=== PATIENT | female | born 1975 | race American Indian/Alaskan Native ===

== ENCOUNTER 2016-10-18 23:31 | Day surgery (SDC) | payer MEDICAID ==
[2016-10-18] MEDS ORDERED: Lidocaine 1% with EPINEPHrine 1:100,000 20 ML MDV ONE (23:58)
[2016-10-18] MEDS ORDERED: Bupivacaine 0.5%/EPINEPHrine 1:200,000 50 ML MDV ONE (23:59)
[2016-10-19] MEDS ORDERED: Rocuronium 50 MG/5 ML Vial ONE (00:16)
[2016-10-19] MEDS ORDERED: Propofol 200 MG/20 ML SDV ONE (00:16)
[2016-10-19] MEDS ORDERED: Ondansetron 4 MG/2 ML SDV ONE (00:16)
[2016-10-19] MEDS ORDERED: fentaNYL 250 MCG/5 ML SDV ONE (00:17)
[2016-10-19] MEDS ORDERED: Midazolam 1 MG/ML 2 ML SDV ONE (00:17)
[2016-10-19] MEDS ORDERED: Lidocaine 1% 2 ML SDV ONE (00:17)
--- NOTE | 2016-10-19 00:36 | PCM.CONS ---
H&P History of Present Illness - General Date of Service: 10/19/16 Admit Problem/Dx: Admission Diagnosis/Problem Admission Diagnosis/Problem Acute appendicitis Source of Information: Patient, Old records History Limitations: Reports: No limitations - History of Present Illness Initial Comments - Free Text/Narative: The patient is a 41-year-old woman who presents with complaints of abdominal pain since approximately 6:30 PM yesterday, October 18. The patient was brought from the [place] emergency department [facility] for further care. The pain is primarily located in the right lower quadrant at this time and all over the abdomen. The pain started in the left lower quadrant. In [facility], she was also diagnosed with a UTI. She received one dose of Rocephin en route from [facility] which was prescribed by the ER provider in [facility]. They have never had pain like this before. They deny nausea, vomiting, fever and chills. Denies hematochezia, melena, diarrhea or constipation. They deny any personal or family history of colon cancer or inflammatory bowel disease. White blood cell count was 10.2 with no significant left shift when drawn at 8PM in [facility]. CT scan of the Abdomen and Pelvis was performed demonstrating mild appendicitis with no evidence of perforation or abscess. No prior colonoscopy. She also currently has a cold. Urine culture obtained in [facility]. HCG negative. ROS - Notes hx of easy bruising. No hx of clotting d/o. Denies hx of anethesia related complications. Denies VT/stroke. PMH - Morbid obesity BMI 48, Tobacco use, Hx of methamphetamine use, hypothyroidism, GERD, snoring, costochondritis, dysplipidemia, elevated transaminases, hx of elevated blood glc, hx of kidney stones PSxH - Lap yeny, , lithotripsy, cystoscopy w/ stent placement Meds - Synthroid and Prilosec ALL - PCN - puffy/rash, Latex powdered gloves, but no hx of problems with Latex Salcedo catheters, some adhesives SH - Smokes 1-2 cig/day, Denies EtOH, Hx of meth use about 1-2 years ago, Lives in [place] FH - [place] in 60s due to DM, FA due to cerebral aneurysm Left Lower Abdominal Pain Score (Numeric/FACES): 3 - Related Data Allergies/Adverse Reactions: Allergies Allergy/AdvReac Type Severity Reaction Status Date / Time Penicillins Allergy Hives Verified 10/18/16 23:40 Home Medications: Home Meds Omeprazole [Prilosec] 20 mg PO DAILY 04/22/15 [History] Past Medical History - Past Health History Medical/Surgical History: Denies Medical/Surgical History Gastrointestinal History: Reports: GERD Genitourinary History: Reports: Renal calculus 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 No family hx of bleeding/clotting disorders or problems with anesthesia. - Tobacco Use Smoking Status *Q: Current Every Day Smoker Years of Tobacco use: 15 Packs/Tins Daily: 0.5 Used Tobacco, but Quit: No Second Hand Smoke Exposure: Yes - Caffeine Use Caffeine Use: Reports: None - Alcohol Use Days Per Week of Alcohol Use: 0 Number of Drinks Per Day: 0 Total Drinks Per Week: 0 - Recreational Drug Use Recreational Drug Use: Yes Drug Use in Last 12 Months: No Other Recreational Drug Type: 2 years ago quit-did on own H&P Review of Systems - Review of Systems: Review Of Systems: ROS reveals no pertinent complaints other than HPI. Exam - Exam Exam: See Below - Vital Signs Vital Signs: Last Vital Signs Temp 97.5 F 10/18/16 23:32 Pulse 63 10/18/16 23:32 Resp 16 10/18/16 23:32 BP 112/71 10/18/16 23:32 Pulse Ox 98 10/18/16 23:32 Weight: 290 lb - Exam General: alert, oriented, cooperative, moderate distress HEENT: Conjunctiva clear, Hearing intact, Other (patient with upper airway/ sinus congestion ). No: Scleral icterus Lungs: Clear to auscultation, Normal respiratory effort Cardiovascular: regular rate, regular rhythm Abdomen: other (obese, patient complains of severe pain with light touch, but no significant pain with heel tap. ) Rectal (Female) Exam: Deferred Extremities: No: cyanosis, calf tenderness, edema Skin: warm, dry, intact Neurological: cranial nerves intact, normal speech. No: focal deficit Neuro Extensive - Mental Status: alert, oriented x3 Psychiatric: other (Tearful ) - Patient Data Imaging Impressions last 24 hrs: CT images personally reviewed, please see HPI. Consult PN Assessment/Plan Procedures: Procedures ASSAY OF AMYLASE (04/22/15) ASSAY OF LIPASE (05/21/14) ASSAY THYROID STIM HORMONE (09/30/16) C-REACTIVE PROTEIN (05/21/14) CHEST X-RAY 1 VIEW FRONTAL (09/27/16) CHORIONIC GONADOTROPIN ASSAY (04/22/15) COMPLETE CBC AUTOMATED (09/30/16) COMPLETE CBC W/AUTO DIFF WBC (04/22/15) COMPREHEN METABOLIC PANEL (09/30/16) CT ABD & PELVIS W/O CONTRAST (04/22/15) ELECTROCARDIOGRAM TRACING (09/27/16) EMERGENCY DEPT VISIT (09/27/16) EMERGENCY DEPT VISIT (04/22/15) HYDRATE IV INFUSION ADD-ON (04/22/15) LIPID PANEL (09/30/16) ROUTINE VENIPUNCTURE (09/30/16) STREP B DNA AMP PROBE (09/29/14) THER/PROPH/DIAG INJ IV PUSH (04/22/15) TX/PRO/DX INJ NEW DRUG ADDON (04/22/15) TX/PRO/DX INJ 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 Risks of the procedure were discussed including pain, bleeding, infection, scarring, need for additional procedures, risks of anesthesia. The patient found these risks acceptable and agreed to proceed. Will given Invanz 1 gm as tx abx. Patient will need Rx for UTI, none given by Rae prior to DC. Patient should establish care w/ PCP of her choice.
--- NOTE | 2016-10-19 00:46 | PCM.OPNOTE ---
- General Post-Op/Procedure Note Date of Surgery/Procedure: 10/19/16 Operative Procedure(s): Laparoscopic appendectomy Pre Op Diagnosis: Acute appendicitis Post-Op Diagnosis: Same (non-perforated), intra-abdominal adhesions Anesthesia Technique: General ET tube, Local Primary Surgeon: Radha Ramires Anesthesia Provider: Axel Michaud Pathology: Appendix Fluid Replacement, Intraop: 1,000 (mL crystalloid ) EBL in mLs: 5 Complications: None Condition: Good Free Text/Narrative:: INDICATION FOR PROCEDURE: The patient is a 41-year-old woman who had been referred to me by from the [facility] for evaluation for acute appendicitis. She also had a diagnosis of a urinary tract infection. I discussed with the patient performing a laparoscopic appendectomy and associated risks of the procedure. The patient found these risks acceptable and agreed to proceed. DESCRIPTION OF PROCEDURE: The patient was taken to the operating room and placed in the supine position. Sequential compressive devices were placed on the bilateral lower extremities. After induction of general endotracheal anesthesia, the abdomen was prepped and draped in the usual sterile fashion. The left arm had been tucked at the patient 's side and pressure points adequately padded. Treatment antibiotics in the form of Invanz had been administered as per protocol. A curvilinear supraumbilical incision was made using a scalpel. The abdomen was bluntly entered using a hemostat. An 0 Vicryl stay suture was placed. A Dawkins cannula was introduced into the abdomen and the abdomen was insufflated to 15 mm of mercury. The abdomen was then surveyed. There were lower midline adhesions from her previous . Two additional bariatric 5 mm trocars were then placed under direct visualization after first injecting local anesthetic, one in the suprapubic region and one in the left lower quadrant. The appendix was then dissected at the base of the cecum. A mesenteric window was created using a [place]. The appendiceal base was then taken at the cecum using a white load Endo ABY stapler x 2. The appendiceal mesentery was taken using the Harmonic scalpel. The appendix was placed into a Endo Catch bag. The abdomen was suctioned and irrigated. Hemostasis was confirmed. The 5 mm trocars were removed with no evidence of bleeding. The Dawkins cannula and appendix within the EndoCatch bag were then removed. The patient's fascial incision was closed using an 0 Vicryl [id number] suture. Additional local anesthetic was injected lele-incisionally. The incisions were then closed using subcuticular 4-0 Monocryl suture. Dermabond was placed over the patient's skin incisions. The patient was then awakened from anesthesia, extubated, and transferred to the recovery room in stable condition having tolerated the procedure well. Sponge and instrument counts were reported as correct at the end of the case. POSTOPERATIVE PLAN: I discussed my intraoperative findings and post-operative care instructions with the patient's family. The patient will be discharged home today. Prescriptions for Percocet 5/325mg and Zofran ODT were given in addition to Macrobid 100mg BID x 7 days for her UTI. The patient will follow up with in 2 weeks for a post-operative check. She has been instructed to get a PCP and be seen within the next week for her other medical problems. They are not lift over 20 pounds for the next 4 weeks. They are to call the office with any questions or concerns.
[2016-10-19] MEDS ORDERED: Ertapenem 1 GM AdvVial ONE (00:58)
[2016-10-19] MEDS ORDERED: Sodium Chloride 0.9% 100 ML ONE (00:58)
[2016-10-19] MEDS ORDERED: Neostigmine Methylsulfate 1 MG/ML 5 ML Syringe ONE (01:29)
[2016-10-19] MEDS ORDERED: Lactated Ringers 1,000 ML ONE ×2 (01:40→01:44)
[2016-10-19] MEDS ORDERED: Ketorolac 30 MG/ML SDV ONE (01:41)
[2016-10-19] MEDS ORDERED: HYDROmorphone 0.5 MG/0.5 ML Syringe IVPUSH PRN (01:49)
[2016-10-19] MEDS ORDERED: fentaNYL 100 MCG/2 ML SDV IVPUSH PRN (01:49)
--- NOTE | 2016-10-19 01:50 | PCM.POSTAN ---
POST ANESTHESIA ASSESSMENT - MENTAL STATUS Mental Status: alert, oriented - VITAL SIGNS Pulse Rate: 105 SaO2: 94 Resp Rate: 22 Blood Pressure: 129/64 Temperature: 36.4 C - RESPIRATORY Respiratory Status: respiratory rate WNL, airway patent, O2 saturation stable - CARDIOVASCULAR CV Status: pulse rate WNL, blood pressure stable - GASTROINTESTINAL GI Status: no symptoms - PAIN Pain Score: 0 - POST OP HYDRATION Hydration Status: adequate & stable - OBSERVATIONS Free Text/Narrative:: no anesthesia complications noted
--- NOTE | 2016-10-19 01:52 | PCM.PREANE ---
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 Respiratory: Reports: no symptoms Cardiovascular: Reports: no symptoms GI: Reports: no symptoms Other: Reports: easy bruising - PHYSICAL ASSESSMENT HR: 105 O2 Sat by Pulse Oximetry: 94 RR: 22 BP: 129/64 Temp: 36.4 C Vital Signs: Last Vital Signs Temp 36.4 C 10/19/16 01:50 Pulse 105 H 10/19/16 01:50 Resp 22 H 10/19/16 01:50 BP 129/64 10/19/16 01:50 Pulse Ox 94 L 10/19/16 01:50 Height: 1.65 m Weight: 131.542 kg NPO Status Date: 10/18/16 NPO Status Time: 10:30 ASA Class: 3E Mental Status: alert & oriented x3 Airway Class: Mallampati = 2 Dentition: Reports: normal dentition Thyro-Mental Finger Breadths: 3 Mouth Opening Finger Breadths: 2 ROM/Head Extension: full Respiratory Status: lungs clear to auscultation bilaterally Cardiovascular Status: regular rate & rhythm - ALLERGIES Allergies/Adverse Reactions: Allergies Allergy/AdvReac Type Severity Reaction Status Date / Time Penicillins Allergy Hives Verified 10/18/16 23:40 - BLOOD Blood Available: No Product(s) Available: None - ANESTHESIA PLAN Preop Beta Ricardo: No Anesthesia Type Planned: general anesthesia - ACKNOWLEDGEMENTS Pt an appropriate candidate for the planned anesthesia: Yes Alternatives and risks of anesthesia discussed w pt/guardian: Yes Pt/Guardian understands and agree with anesthesia plan: Yes PreAnesthesia Questionnaire - Past Health History Medical/Surgical History: Denies Medical/Surgical History Gastrointestinal History: Reports: GERD Genitourinary History: Reports: Renal calculus 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: Endocrine/Metabolic History: Reports: Hypothyroidism - Past Surgical History GI Surgical History: Reports: Cholecystectomy Female Surgical History: Reports: section, Lithotripsy/ESWL - SUBSTANCE USE Smoking Status *Q: Current Every Day Smoker Tobacco Use Within Last Twelve Months: Cigarettes Second Hand Smoke Exposure: Yes Days Per Week of Alcohol Use: 0 Number of Drinks Per Day: 0 Total Drinks Per Week: 0 Recreational Drug Use History: Yes - HOME MEDS Home Medications: Home Meds Omeprazole [Prilosec] 20 mg PO DAILY 04/22/15 [History] - CURRENT (IN HOUSE) MEDS Current Meds: Current Medications Fentanyl (Sublimaze) 50 mcg IVPUSH Q5M PRN PRN Reason: PAIN Hydromorphone HCl (Dilaudid) 0.5 mg IVPUSH Q15M PRN PRN Reason: Pain Stop: 10/19/16 02:05 Discontinued Medications Bupivacaine HCl/Epinephrine Bitart (Marcaine 0.5%/Epinephrine 1:200,000) Confirm Administered Dose 50 ml .ROUTE .STK-MED ONE Stop: 10/19/16 00:00 Ertapenem (Invanz) Confirm Administered Dose 1 gm .ROUTE .STK-MED ONE Stop: 10/19/16 00:59 Fentanyl (Sublimaze) Confirm Administered Dose 250 mcg .ROUTE .STK-MED ONE Stop: 10/19/16 00:18 Glycopyrrolate () Confirm Administered Dose 1 mg .ROUTE .STK-MED ONE Stop: 10/19/16 01:30 Sodium Chloride (Normal Saline) Confirm Administered Dose 100 mls @ as directed .ROUTE .STK-MED ONE Stop: 10/19/16 00:59 Lactated Ringer's (Ringers, Lactated) Confirm Administered Dose 1,000 mls @ as directed .ROUTE .STK-MED ONE Stop: 10/19/16 01:41 Lactated Ringer's (Ringers, Lactated) Confirm Administered Dose 1,000 mls @ as directed .ROUTE .STK-MED ONE Stop: 10/19/16 01:45 Ketorolac Tromethamine (Toradol) Confirm Administered Dose 30 mg .ROUTE .STK- MED ONE Stop: 10/19/16 01:42 Lidocaine HCl (Lidocaine 1%) Confirm Administered Dose 4 ml .ROUTE .STK-MED ONE Stop: 10/19/16 00:18 Lidocaine/Epinephrine (Xylocaine 1% With Epinephrine 1:100,000) Confirm Administered Dose 20 ml .ROUTE .STK-MED ONE Stop: 10/18/16 23:59 Midazolam HCl (Versed 1 Mg/Ml) Confirm Administered Dose 2 mg .ROUTE .STK-MED ONE Stop: 10/19/16 00:18 Neostigmine Methylsulfate (Neostigmine) Confirm Administered Dose 5 mg .ROUTE .STK-MED ONE Stop: 10/19/16 01:30 Ondansetron HCl (Zofran) Confirm Administered Dose 4 mg .ROUTE .Netotiate-MED ONE Stop: 10/19/16 00:17 Propofol (Diprivan 20 Ml) Confirm Administered Dose 200 mg .ROUTE .RDA MicroelectronicsMED ONE Stop: 10/19/16 00:17 Rocuronium Basile (Zemuron) Confirm Administered Dose 50 mg .ROUTE .Netotiate-MED ONE Stop: 10/19/16 00:17
[2016-10-19] MEDS ORDERED: Acetaminophen/oxyCODONE 325-5 MG Tab PO ONE (02:26)
[2016-10-19 08:25] VITALS: BP 93/65
== END 2016-10-19 01:46 | disposition home or self-care (01) ==
LOC: JD.ED 23:31 → JD.SDS 10-19 00:27 → JD.ED 10-19 00:27 → JD.SDS 10-19 01:46
PROVIDERS: ATTEND Surgery
DX: K37 Unspecified appendicitis (principal); N39.0 Urinary tract infection, site not specified; F17.210 Nicotine dependence, cigarettes, uncomplicated; E03.9 Hypothyroidism, unspecified
CPT/HCPCS: 44970; 88304; 99285; A9270; J1170; J1335; J1885; J2250; J2405; J2710; J3010; J7030; J7120; 00840; J2704

== ENCOUNTER 2016-11-08 21:19 | Emergency (ER) | payer MEDICAID ==
[2016-11-08 21:32] VITALS: BP 131/80
[2016-11-08] MEDS ORDERED: Acetaminophen/oxyCODONE 325-5 MG Tab PO ONE (23:00)
[2016-11-09] MEDS ORDERED: Doxycycline 100 MG Cap PO ONE (00:12)
--- NOTE | 2016-11-09 00:18 | EDM.PDOC ---
ED HPI Skin/Rash - General Chief Complaint: Abdominal Pain Stated Complaint: AB PAIN Time Seen by Provider: 11/08/16 22:12 Source: Reports: Patient History Limitations: Reports: No limitations - History of Present Illness INITIAL COMMENTS - FREE TEXT/NARRATIVE: Patient presents for evaluation and treatment of erythema, drainage and pain to her umbilicus. She reports her symptoms have been present for the last 2 days. She reports that she has a laproscopic appendectomy on . She was on antibiotics and Percocet for pain after the surgery. She states that she took these as prescribed. She is out of her Percocet. She reports that she has been compliant with the recommendations such as no lifting greater than 20 pounds. She has not followed up with her surgeon for a postop followup as she was unaware of the appointment. She is currently complaining of erythema, pain and pus from the port site from the umbilicus. She reports the drainage is clear. She denies any fevers, chills, nausea or vomiting. 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: Endocrine/Metabolic History: Reports: Hypothyroidism - Past Surgical History GI Surgical History: Reports: Appendectomy, Cholecystectomy Female Surgical History: Reports: section, Lithotripsy/ESWL Social & Family History - Tobacco Use Smoking Status *Q: Current Every Day Smoker Years of Tobacco use: 17 Packs/Tins Daily: 0.5 Used Tobacco, but Quit: No Second Hand Smoke Exposure: Yes - Caffeine Use Caffeine Use: Reports: Coffee, Soda - Alcohol Use Days Per Week of Alcohol Use: 0 Number of Drinks Per Day: 0 Total Drinks Per Week: 0 - Recreational Drug Use Recreational Drug Use: Yes Drug Use in Last 12 Months: No Other Recreational Drug Type: 2 years ago quit-did on own ED ROS GENERAL - Review of Systems Review Of Systems: See Below Constitutional: Denies: fever, chills GI/Abdominal: Reports: Abdominal pain. Denies: Nausea, Vomiting Skin: Reports: erythema (surrounding the port site to the umbilicus), wound ( port site wound) ED EXAM, SKIN/RASH Exam: See Below Exam Limited By: No limitations General Appearance: alert, WD/WN, no apparent distress, obese Respiratory/Chest: no respiratory distress, lungs clear, normal breath sounds Cardiovascular: normal peripheral pulses, regular rate, rhythm, no murmur GI/Abdominal: normal bowel sounds Neurological: alert, oriented, normal cognition Psychiatric: normal affect, normal mood Skin: Erythema (approximately 6cm in diameter area of erythema with warmth and tenderness surrounding the 2cm surgical port site, some drainage from the wound ; remainder of port sites are well healed) Course - Vital Signs Last Recorded V/S: Last Vital Signs Temp 36.4 C 11/08/16 21:29 Pulse 68 11/08/16 21:29 Resp 20 11/08/16 21:29 BP 131/80 11/08/16 21:29 Pulse Ox 97 11/08/16 21:29 - Orders/Labs/Meds Orders: Active Orders 24 hr Category Date Time Status CULTURE ANAEROBIC + SMEAR [RM] Stat Lab 11/08/16 23:40 Received Labs: Laboratory Tests 11/08/16 11/08/16 11/08/16 Range/Units 22:34 22:34 22:55 WBC 7.45 (3.98-10.04) K/mm3 RBC 4.87 (3.98-5.22) M/mm3 Hgb 11.3 (11.2-15.7) gm/L Hct 37.0 (34.1-44.9) % MCV 76.0 L (79.4-94.8) fl MCH 23.2 L (25.6-32.2) pg MCHC 30.5 L (32.2-35.5) g/dl RDW Std Deviation 47.7 H (36.4-46.3) fL Plt Count 314 (182-369) K/mm3 MPV 10.4 (9.4-12.3) fl Neutrophils % (Manual) 50 (40-60) % Band Neutrophils % 0 (0-10) % Lymphocytes % (Manual) 42 H (20-40) % Atypical Lymphs % 0 % Monocytes % (Manual) 4 (2-10) % Eosinophils % (Manual) 3 (0.7-5.8) % Basophils % (Manual) 1 (0.1-1.2) Platelet Estimate Adequate Plt Morphology Comment See note Hypochromasia Few Anisocytosis 1+ slight Microcytosis Moderate Stomatocytes Few RBC Morph Comment Not Reportable Sodium 142 (136-145) mEq/L Potassium 3.7 (3.5-5.1) mEq/L Chloride 107 (98-107) mEq/L Carbon Dioxide 23 (21-32) mEq/L Anion Gap 15.7 H (5-15) BUN 8 (7-18) mg/dL Creatinine 0.9 (0.55-1.02) mg/dL Est Cr Clr Drug Dosing 75.52 mL/min Estimated GFR (MDRD) > 60 (>60) mL/min BUN/Creatinine Ratio 8.9 L (14-18) Glucose 118 H (74-106) mg/dL Calcium 8.0 L (8.5-10.1) mg/dL Total Bilirubin 0.2 (0.2-1.0) mg/dL AST 26 (15-37) U/L ALT 49 (14-59) U/L Alkaline Phosphatase 152 H (46-116) U/L C-Reactive Protein 0.8 (<1.0) mg/dL Total Protein 7.1 (6.4-8.2) g/dl Albumin 3.2 L (3.4-5.0) g/dl Globulin 3.9 gm/dL Albumin/Globulin Ratio 0.8 L (1-2) Urine Color Yellow (Yellow) Urine Appearance Slt cloudy H (Clear) Urine pH 6.5 (5.0-8.0) Ur Specific [place] 1.025 (1.005-1.030) Urine Protein Negative (Negative) Urine Glucose (UA) Negative (Negative) Urine Ketones Trace H (Negative) Urine Occult Blood Negative (Negative) Urine Nitrite Negative (Negative) Urine Bilirubin Negative (Negative) Urine Urobilinogen 0.2 (0.2-1.0) Ur Leukocyte Esterase Negative (Negative) Urine RBC Not seen (0-5) /hpf Urine WBC 0-5 (0-5) /hpf Urine WBC Clumps Not seen (NOT SEEN) /hpf Ur Epithelial Cells 0-5 (0-5) /hpf Urine Bacteria Rare (FEW) /hpf Urine Mucus Not seen (FEW) /hpf Urine Yeast Not seen (NOT SEEN) Meds: Medications Discontinued Medications Generic Name Dose Route Start Last Admin Trade Name Freq PRN Reason Stop Dose Admin Doxycycline Hyclate 200 mg 11/09/16 00:12 11/09/16 00:27 Vibramycin PO 11/09/16 00:13 200 mg ONETIME ONE Administration Oxycodone/Acetaminophen 1 tab 11/08/16 23:00 11/08/16 23:06 Percocet 325-5 Mg PO 11/08/16 23:01 1 tab ONETIME ONE Administration - Re-Assessments/Exams Free Text/Narrative Re-Assessment/Exam: 11/09/16 00:06 Labs have returned. What blood cell count is normal at 7.45, hemoglobin is 11.3 and platelets are 314. Sodium is 142, potassium is 3.7 chloride is 107. Anion gap is 15.7. Glucose is 118. CRP is within normal limits of 0.8. UA shows trace ketones. Negative for nitrates and leukocytes. Reviewed the results the patient. I feel this is likely a superficial cellulitis. I will start her on antibiotics and prescribe medication to help with the pain and discomfort. She is to followup with Dr. Radha Ramires this week. She is to return here should her symptoms change or worsen. Departure - Departure Time of Disposition: 00:12 Disposition: Home, Self-Care 01 Condition: fair Clinical Impression: Cellulitis Prescriptions: Doxycycline [Vibramycin] 100 mg PO Q12HR #20 cap traMADol [Ultram] 50 mg PO Q6H PRN #10 tablet PRN Reason: Pain Instructions: Cellulitis, Adult, [id number] Referrals: Radha Ramires MD [Primary Care Provider] - Forms: ED Department Discharge Additional Instructions: you were given medication in the ER that canaffect your ability to drive and operate machinery. No driving or operating machinery within 12 hours of taking prescription narcotic pain medication. Take the doxycycline as prescribed. One tab twice a day for 10 days. Start this medication tomorrow. may take [id number] Tylenol or Motrin as needed for pain symptom relief. He may take the tramadol one tab every 6 hours as needed for severe pain. No driving operating machinery within 12 hours of taking the tramadol. Tramadol can be habit forming. I recommended you take as few of these as needed to control your pain. Followup with Dr. Ramires this week. Please return to the ER should your symptoms change or worsen. - My Orders Last 24 Hours: My Active Orders 11/08/16 23:40 CULTURE ANAEROBIC + SMEAR [RM] Stat - Assessment/Plan Last 24 Hours: My Active Orders 11/08/16 23:40 CULTURE ANAEROBIC + SMEAR [RM] Stat
== END 2016-11-09 00:20 | disposition home or self-care (01) ==
LOC: JD.ED 21:19 → SUPCPDRO 21:19 → JD.ED 11-09 00:20
DX: T81.4XXA Infection following a procedure, initial encounter (principal); L03.316 Cellulitis of umbilicus; Y83.8 Other surgical procedures as the cause of abnormal reaction of the patient, or of later complication, without mention of misadventure at the time of the procedure; K21.9 Gastro-esophageal reflux disease without esophagitis; E03.9 Hypothyroidism, unspecified; F17.210 Nicotine dependence, cigarettes, uncomplicated; Z88.0 Allergy status to penicillin
CPT/HCPCS: 36415; 80053; 81001; 85025; 86140; 87075; 87205; 99284; A9270; 87077; 87181; 87186; 99283

== ENCOUNTER 2017-03-19 13:29 | Emergency (ER) | payer MEDICAID ==
[2017-03-19 13:41] VITALS: BP 135/82
--- NOTE | 2017-03-19 14:14 | EDM.PDOC ---
ED HPI GENERAL MEDICAL PROBLEM - General Chief Complaint: Chest Pain Stated Complaint: CHEST PAIN Time Seen by Provider: 03/19/17 14:14 - History of Present Illness INITIAL COMMENTS - FREE TEXT/NARRATIVE: 41-year-old female presents emergency room with chest pain. This chest pain started on the right side and moved up and down her right arm with tingling and numbness in her thumb index finger middle finger. This pain started about 45 minutes to an hour prior to arrival the patient was driving during this time. The patient did not have any shortness of breath preceding feeding difficulties cough during this she denies any fevers chills. She does not have any chest pressure diaphoresis or gastrointestinal symptoms including nausea or vomiting. The patient has a significant family history of what sounds like coronary artery disease with congestive heart failure in multiple relatives along with some diabetes hypertension and hyperlipidemia. The patient has tried to lose weight recently but had problems with her leg swelling up with these warmer days. She currently does not have a regular physician. In the past the patient has had a questionable history of thyroid problems. right anterior chest wall Pain Score (Numeric/FACES): 5 - Related Data Allergies Allergy/AdvReac Type Severity Reaction Status Date / Time Penicillins Allergy Hives Verified 03/19/17 13:41 Home Meds: Home Meds Omeprazole [Prilosec] 20 mg PO DAILY 04/22/15 [History] Past Medical History - Past Health History Medical/Surgical History: Denies Medical/Surgical History Cardiovascular History: Reports: High Cholesterol Respiratory History: Reports: Other (See Below) Other Respiratory History: calcification on right side of upper lung Gastrointestinal History: Reports: GERD Genitourinary History: Reports: Renal Calculus 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: Endocrine/Metabolic History: Reports: Hypothyroidism - Past Surgical History GI Surgical History: Reports: Appendectomy, Cholecystectomy Female Surgical History: Reports: Section, Lithotripsy/ESWL Social & Family History - Tobacco Use Smoking Status *Q: Current Every Day Smoker Years of Tobacco use: 17 Packs/Tins Daily: 0.2 Used Tobacco, but Quit: No Second Hand Smoke Exposure: Yes - Caffeine Use Caffeine Use: Reports: Coffee, Energy Drinks, Tea - Alcohol Use Days Per Week of Alcohol Use: 0 Number of Drinks Per Day: 0 Total Drinks Per Week: 0 - Recreational Drug Use Recreational Drug Use: No Drug Use in Last 12 Months: No Other Recreational Drug Type: 2 years ago quit-did on own ED ROS GENERAL - Review of Systems Review Of Systems: See Below Constitutional: Reports: No Symptoms HEENT: Reports: No Symptoms Respiratory: Reports: No Symptoms Cardiovascular: Reports: Chest Pain, Edema (Only with exercise). Denies: Blood Pressure Problem, Claudication, Palpitations, Syncope GI/Abdominal: Reports: No Symptoms. Denies: Abdominal Pain, Anorexia, Constipation, Diarrhea, Nausea, Vomiting Neurological: Reports: No Symptoms ED EXAM, GENERAL - Physical Exam Exam: See Below Exam Limited By: No Limitations General Appearance: Alert, No Apparent Distress Head: Atraumatic, Normocephalic Neck: Normal Inspection, Supple, Non-Tender, Full Range of Motion. No: Lymphadenopathy (L), Lymphadenopathy (R) Respiratory/Chest: No Respiratory Distress, Lungs Clear, Normal Breath Sounds Cardiovascular: Normal Peripheral Pulses, Regular Rate, Rhythm, No Murmur GI/Abdominal: Normal Bowel Sounds, Soft, Non-Tender, Other (Significant obesity noted) Extremities: Normal Inspection, No Pedal Edema, Other (Semination of her right wrist shows a positive Tinel's with distal paresthesias mostly in her thumb index finger middle finger and to a lesser degree the radial aspect of her ring finger. Reversed Phalen's is positive regular Phalen's negative this pain did aggravate her right-sided chest discomfort.) Neurological: Alert, Oriented, Normal Cognition Psychiatric: Normal Affect EKG INTERPRETATION EKG Date: 03/19/17 Rhythm: NSR [place]: Normal P-Wave: Present QRS: Normal ST-T: Normal QT: Normal Comparison: NA - No Prior EKG EKG Interpretation Comments: Normal Course - Vital Signs Last Recorded V/S: Last Vital Signs Temp 36.5 C 03/19/17 13:35 Pulse 73 03/19/17 13:35 Resp 18 03/19/17 13:35 BP 135/82 03/19/17 13:35 Pulse Ox 100 03/19/17 13:35 - Orders/Labs/Meds Orders: Active Orders 24 hr Category Date Time Status EKG 12 Lead [EKG Documentation Completion] [RC] STAT Care 03/19/17 13:50 Active Chest 1V Frontal [CR] Stat Exams 03/19/17 14:24 Taken Durable Medical Equipment for Discharge [DME for Oth 03/19/17 16:35 Ordered Discharge] [COMM] Stat Labs: Laboratory Tests 03/19/17 03/19/17 03/19/17 Range/Units 13:55 13:55 13:55 WBC 9.29 (3.98-10.04) K/mm3 RBC 5.11 (3.98-5.22) M/mm3 Hgb 11.7 (11.2-15.7) gm/L Hct 39.1 (34.1-44.9) % MCV 76.5 L (79.4-94.8) fl MCH 22.9 L (25.6-32.2) pg MCHC 29.9 L (32.2-35.5) g/dl RDW Std Deviation 50.1 H (36.4-46.3) fL Plt Count 337 (182-369) K/mm3 MPV 10.6 (9.4-12.3) fl Neutrophils % (Manual) 65 H (40-60) % Band Neutrophils % 0 (0-10) % Lymphocytes % (Manual) 28 (20-40) % Atypical Lymphs % 0 % Monocytes % (Manual) 2 (2-10) % Eosinophils % (Manual) 4 (0.7-5.8) % Basophils % (Manual) 1 (0.1-1.2) Platelet Estimate Adequate Hypochromasia 2+ moderate Target Cells 1+ slight Tear Drop Cells 1+ slight RBC Morph Comment Not Reportable PT 9.4 (8.0-13.0) SECONDS INR 0.87 APTT 26 (22-36) SECONDS Sodium 139 (136-145) mEq/L Potassium 3.9 (3.5-5.1) mEq/L Chloride 105 (98-107) mEq/L Carbon Dioxide 24 (21-32) mEq/L Anion Gap 13.9 (5-15) BUN 11 (7-18) mg/dL Creatinine 0.8 (0.55-1.02) mg/dL Est Cr Clr Drug Dosing 84.95 mL/min Estimated GFR (MDRD) > 60 (>60) mL/min BUN/Creatinine Ratio 13.8 L (14-18) Glucose 116 H (74-106) mg/dL Calcium 8.8 (8.5-10.1) mg/dL Total Bilirubin 0.2 (0.2-1.0) mg/dL AST 69 H (15-37) U/L ALT 82 H (14-59) U/L Alkaline Phosphatase 155 H (46-116) U/L Troponin I < 0.017 (0.00-0.056) ng/mL Total Protein 7.5 (6.4-8.2) g/dl Albumin 3.3 L (3.4-5.0) g/dl Globulin 4.2 gm/dL Albumin/Globulin Ratio 0.8 L (1-2) TSH 3rd Generation 3.545 (0.358-3.74) uIU/mL 03/19/17 Range/Units 16:55 WBC (3.98-10.04) K/mm3 RBC (3.98-5.22) M/mm3 Hgb (11.2-15.7) gm/L Hct (34.1-44.9) % MCV (79.4-94.8) fl MCH (25.6-32.2) pg MCHC (32.2-35.5) g/dl RDW Std Deviation (36.4-46.3) fL Plt Count (182-369) K/mm3 MPV (9.4-12.3) fl Neutrophils % (Manual) (40-60) % Band Neutrophils % (0-10) % Lymphocytes % (Manual) (20-40) % Atypical Lymphs % % Monocytes % (Manual) (2-10) % Eosinophils % (Manual) (0.7-5.8) % Basophils % (Manual) (0.1-1.2) Platelet Estimate Hypochromasia Target Cells Tear Drop Cells RBC Morph Comment PT (8.0-13.0) SECONDS INR APTT (22-36) SECONDS Sodium (136-145) mEq/L Potassium (3.5-5.1) mEq/L Chloride (98-107) mEq/L Carbon Dioxide (21-32) mEq/L Anion Gap (5-15) BUN (7-18) mg/dL Creatinine (0.55-1.02) mg/dL Est Cr Clr Drug Dosing mL/min Estimated GFR (MDRD) (>60) mL/min BUN/Creatinine Ratio (14-18) Glucose (74-106) mg/dL Calcium (8.5-10.1) mg/dL Total Bilirubin (0.2-1.0) mg/dL AST (15-37) U/L ALT (14-59) U/L Alkaline Phosphatase (46-116) U/L Troponin I < 0.017 (0.00-0.056) ng/mL Total Protein (6.4-8.2) g/dl Albumin (3.4-5.0) g/dl Globulin gm/dL Albumin/Globulin Ratio (1-2) TSH 3rd Generation (0.358-3.74) uIU/mL - Re-Assessments/Exams Free Text/Narrative Re-Assessment/Exam: 03/19/17 18:00 Patient presents emergency room with right-sided chest pain with further questioning exam she has carpal tunnel syndrome on her right side positive Tinel 's that actually aggravated her right-sided chest discomfort as well as a positive reverse Phalen's. Her pain did radiate over to the left briefly and then resolved on its own. Patient is placed in a carpal tunnel splint evaluation is concerning for multiple levels she is a very strong family history of coronary artery disease no history of type 2 diabetes however looking at her labs she has elevated liver enzymes. Cannot exclude steatohepatitis this is getting need follow-up her troponin is negative 2. Nonetheless she should have a stress Cardiolite done. She does not have regular physician here in town I will have her follow-up with the Hospital clinic here after stress test she should also either have a repeat chest x-ray as she had some degree of cardiomegaly could be secondary to her body habitus or a cardiac echo to evaluate the etiology of this. Discussed the findings with the patient she understands. At one point the patient wanted me to discuss the situation with her brother I did declined doing this as the patient is not here and advised the patient that she should explain it to him or have him come to the emergency room and I would be glad to explain it to him then. Departure - Departure Time of Disposition: 18:03 Disposition: Home, Self-Care 01 Clinical Impression: Chest pain, Carpal tunnel syndrome of right wrist Referrals: PCP,None [Primary Care Provider] - Forms: ED Department Discharge Additional Instructions: Return to the emergency room with any questions or problems or worsening symptoms. He will be scheduled for a stress Cardiolite. This is a stress test for your heart. Be sure and get this done as scheduled. You'll need to follow-up in the Hospital clinic, [phone], a couple days after the stress test. Discuss with them your risk factors for diabetes hypertension hyperlipidemia and heart disease. On your chest x-ray today your heart was a little on the big side you should have a follow-up chest x-ray to confirm if it is indeed big or go straight to an echocardiogram which tells us more about the heart function and more accurate determinant of the heart size. - My Orders Last 24 Hours: My Active Orders 03/19/17 13:50 EKG 12 Lead [EKG Documentation Completion] [RC] STAT 03/19/17 14:24 Chest 1V Frontal [CR] Stat 03/19/17 16:35 Durable Medical Equipment for Discharge [DME for Discharge] [COMM] Stat - Assessment/Plan Last 24 Hours: My Active Orders 03/19/17 13:50 EKG 12 Lead [EKG Documentation Completion] [RC] STAT 03/19/17 14:24 Chest 1V Frontal [CR] Stat 03/19/17 16:35 Durable Medical Equipment for Discharge [DME for Discharge] [COMM] Stat
--- NOTE | 2017-03-20 08:04 | CR ---
Chest: Portable view of the chest was obtained. Comparison: Previous chest x-ray of 09/27/16. Heart size and mediastinum are normal. Lungs are clear. Bony structures are grossly intact. Impression: 1. Nothing acute is identified on portable chest x-ray. Diagnostic code #1
== END 2017-03-19 18:17 | disposition home or self-care (01) ==
LOC: JD.ED 13:29
DX: R07.89 Other chest pain (principal); G56.01 Carpal tunnel syndrome, right upper limb; E78.00 Pure hypercholesterolemia, unspecified; K21.9 Gastro-esophageal reflux disease without esophagitis; E03.9 Hypothyroidism, unspecified; F17.210 Nicotine dependence, cigarettes, uncomplicated; Z90.49 Acquired absence of other specified parts of digestive tract; Z98.890 Other specified postprocedural states; Z87.440 Personal history of urinary (tract) infections; Z79.899 Other long term (current) drug therapy; Z88.0 Allergy status to penicillin
CPT/HCPCS: 36415; 71010; 71010-26; 80053; 84443; 84484; 85025; 85610; 85730; 93005; 99284; 99285-25

== ENCOUNTER 2020-01-20 15:37 | Emergency (ER) | payer MEDICAID ==
[2020-01-20 16:01] VITALS: BP 149/80; PULSE 82
--- NOTE | 2020-01-20 16:18 | EDM.PDOC ---
ED HPI GENERAL MEDICAL PROBLEM - General Chief Complaint: Lower Extremity Injury/Pain Stated Complaint: LT KNEE INJURY Time Seen by Provider: 01/20/20 16:18 - History of Present Illness INITIAL COMMENTS - FREE TEXT/NARRATIVE: 44-year-old female presents the emergency room with a painful left knee. About a week and a half ago the patient was running down a hill there was a dip at the bottom that had some mud in it she twisted her knee. The patient is tried ibuprofen thinking it would get better and it just has not. She has discomfort with this but is otherwise ambulating on it it is uncomfortable to walk on. Treatments INTELLIGENCE APPLICATIONS: Reports: Cold Therapy, NSAIDS, Splint(s) Left Knee Pain Score (Numeric/FACES): 0 - Related Data Allergies Allergy/AdvReac Type Severity Reaction Status Date / Time Penicillins Allergy Hives Verified 01/20/20 16:01 Home Meds: Home Meds Omeprazole [Prilosec] 20 mg PO DAILY 04/22/15 [History] Past Medical History - Past Health History Medical/Surgical History: Denies Medical/Surgical History HEENT History: Reports: Impaired Vision Cardiovascular History: Reports: High Cholesterol Respiratory History: Reports: Other (See Below) Other Respiratory History: calcification on right side of upper lung Gastrointestinal History: Reports: GERD Genitourinary History: Reports: Renal Calculus 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: Musculoskeletal History: Reports: Back Pain, Chronic Neurological History: Reports: Migraines Psychiatric History: Reports: Depression Endocrine/Metabolic History: Reports: Hypothyroidism - Past Surgical History HEENT Surgical History: Reports: Oral Surgery GI Surgical History: Reports: Appendectomy, Cholecystectomy Female Surgical History: Reports: Section, Lithotripsy/ESWL Social & Family History - Tobacco Use Smoking Status *Q: Current Every Day Smoker Years of Tobacco use: 17 Packs/Tins Daily: 0 - Caffeine Use Caffeine Use: Reports: Coffee, Tea - Recreational Drug Use Recreational Drug Use: No Review of Systems - Review of Systems Review Of Systems: See Below Constitutional: Reports: No Symptoms Mouth/Throat: Reports: No Symptoms Respiratory: Reports: No Symptoms Cardiovascular: Reports: No Symptoms GI/Abdominal: Reports: No Symptoms ED EXAM, GENERAL - Physical Exam Exam: See Below Exam Limited By: No Limitations General Appearance: Alert, No Apparent Distress Respiratory/Chest: No Respiratory Distress, Lungs Clear, Normal Breath Sounds Cardiovascular: Regular Rate, Rhythm, No Edema, No Murmur Extremities: Other (Emanation of her left knee shows what appears to be a intact ACL and MCL LCL seems to be intact but she has a lot of discomfort with putting a strain on it.) Course - Vital Signs Last Recorded V/S: Last Vital Signs Temp 36.1 C 01/20/20 15:57 Pulse 82 01/20/20 15:57 Resp 20 01/20/20 15:57 BP 149/80 H 01/20/20 15:57 Pulse Ox 98 01/20/20 15:57 - Re-Assessments/Exams Free Text/Narrative Re-Assessment/Exam: 01/20/20 17:37 X-ray of the patient he does not show any acute changes. I discussed crutches and a knee immobilizer. I do not think she is got to do well with the knee immobilizer because of her body habitus. And a week and a half from the initial injury measures can make a big difference. The patient would just assume get around the way she is getting around which seems to be okay. Should continue using ibuprofen. I recommended she follow-up with orthopedics in another week or so. Departure - Departure Time of Disposition: 17:40 Disposition: Home, Self-Care 01 Clinical Impression: Injury of left knee - Discharge Information Referrals: PCP,None [Primary Care Provider] - Darin Mcallister MD [Physician] - Forms: ED Department Discharge Additional Instructions: Return to the emergency room with any questions problems or worsening symptoms. Use the ibuprofen as needed for discomfort. Follow-up with Dr. Mcallister in a week or so. Call his office Thursday to schedule an appointment. Sepsis Event Note - Evaluation Sepsis Screening Result: No Definite Risk - Focused Exam Vital Signs: Vital Signs Temp Pulse Resp BP Pulse Ox 01/20/20 15:57 36.1 C 82 20 149/80 H 98 Date Exam was Performed: 01/20/20 Time Exam was Performed: 17:37
--- NOTE | 2020-01-20 16:56 | CR ---
Left knee: AP, lateral and sunrise patellar views left knee were obtained. Comparison: No previous study. Medial and lateral joint compartments are maintained in height. Patellofemoral joint appears within normal limits. No fracture or other bony abnormality is identified. Impression: 1. No abnormality is appreciated on 3 view left knee exam. Diagnostic code #1 This report was dictated in MDT
== END 2020-01-20 17:50 | disposition home or self-care (01) ==
LOC: JD.ED 15:37
DX: S89.92XA Unspecified injury of left lower leg, initial encounter (principal); K21.9 Gastro-esophageal reflux disease without esophagitis; F17.200 Nicotine dependence, unspecified, uncomplicated; Z88.0 Allergy status to penicillin; Z79.899 Other long term (current) drug therapy; X50.1XXA Overexertion from prolonged static or awkward postures, initial encounter
CPT/HCPCS: 73562-26-LT; 73562-LT; 99283

== ENCOUNTER 2021-01-10 22:51 | Emergency (ER) | payer MEDICAID ==
[2021-01-10] MEDS ORDERED: Sodium Chloride 0.9% 10 ML Syringe FLUSH PRN (23:37)
[2021-01-10] MEDS ORDERED: Dexamethasone 4 MG/ML SDV IVPUSH ONE (23:38)
[2021-01-10] MEDS ORDERED: Sodium Chloride 0.9% 1,000 ML IV SCH (23:45)
--- NOTE | 2021-01-11 02:26 | EDM.PDOC ---
ED HPI GENERAL MEDICAL PROBLEM - General Chief Complaint: Respiratory Problem Stated Complaint: COVID+/SOB/COUGH Time Seen by Provider: 01/10/21 23:21 Source of Information: Reports: Patient History Limitations: Reports: No Limitations - History of Present Illness INITIAL COMMENTS - FREE TEXT/NARRATIVE: The patient presents for cough and shortness of breath. She was diagnosed with COVID 19 yesterday. She quit smoking a couple months ago. She has generalized weakness, fever, chills, body aches. She has no history of lung problems. She has a history of diabetes. She has no chest pain, abdominal pain, nausea or vomiting. Onset: Gradual Duration: Day(s): Severity: Moderate Improves with: Reports: None Worsens with: Reports: None Associated Symptoms: Reports: Cough, Fever/Chills, Shortness of Breath. Denies: Chest Pain, Headaches, Nausea/Vomiting - Related Data Allergies Allergy/AdvReac Type Severity Reaction Status Date / Time Penicillins Allergy Severe Hives Verified 01/10/21 23:22 Home Meds: Home Meds Omeprazole [Prilosec] 20 mg PO DAILY 04/22/15 [History] Insulin Aspart [NovoLOG] 8 unit SUBCUT TID 01/10/21 [History] Insulin Glargine,Hum.Rec.Anlog [Lantus Solostar] 35 unit SUBCUT BEDTIME 01/10/21 [History] dexAMETHasone [Dexamethasone] 6 mg PO DAILY #9 tab 01/11/21 [Rx] Past Medical History - Past Health History Medical/Surgical History: Denies Medical/Surgical History HEENT History: Reports: Impaired Vision Cardiovascular History: Reports: High Cholesterol Respiratory History: Reports: Other (See Below) Other Respiratory History: calcification on right side of upper lung Gastrointestinal History: Reports: GERD Genitourinary History: Reports: Renal Calculus [employer] History: Reports: Musculoskeletal History: Reports: Back Pain, Chronic Neurological History: Reports: Migraines Psychiatric History: Reports: Depression Endocrine/Metabolic History: Reports: Diabetes, Type II, Hypothyroidism - Infectious Disease History Infectious Disease History: Reports: Novel Coronavirus - Past Surgical History HEENT Surgical History: Reports: Oral Surgery GI Surgical History: Reports: Appendectomy, Cholecystectomy Female Surgical History: Reports: Section, Lithotripsy/ESWL Social & Family History - Family History Family Medical History: No Pertinent Family History - Tobacco Use Tobacco Use Status *Q: Current Status Unknown Used Tobacco, but Quit: Yes Month/Year Tobacco Last Used: 09/2020 - Caffeine Use Caffeine Use: Reports: None - Recreational Drug Use Recreational Drug Use: No ED ROS GENERAL - Review of Systems Review Of Systems: See Below Constitutional: Reports: Fever, Chills, Malaise, Weakness HEENT: Reports: No Symptoms Respiratory: Reports: Shortness of Breath, Cough Cardiovascular: Reports: No Symptoms Endocrine: Reports: No Symptoms GI/Abdominal: Reports: No Symptoms : Reports: No Symptoms Musculoskeletal: Reports: Muscle Pain ED EXAM, GENERAL - Physical Exam Exam: See Below Exam Limited By: No Limitations General Appearance: Alert, No Apparent Distress Ears: Normal External Exam Nose: Normal Inspection Head: Atraumatic, Normocephalic Neck: Normal Inspection Respiratory/Chest: No Respiratory Distress, Lungs Clear, Normal Breath Sounds Cardiovascular: Regular Rate, Rhythm, No Edema, No Murmur GI/Abdominal: Soft, Non-Tender, No Organomegaly, No Mass Back Exam: Normal Inspection Extremities: Normal Inspection Neurological: Alert, Oriented, No Motor/Sensory Deficits Course - Vital Signs Last Recorded V/S: Last Vital Signs Temp 100.9 F H 01/10/21 23:17 Pulse 93 01/10/21 23:17 Resp 20 01/10/21 23:17 BP 119/74 01/10/21 23:17 Pulse Ox 96 01/10/21 23:17 - Orders/Labs/Meds Orders: Active Orders 24 hr Category Date Time Status Cardiac Monitoring [RC] . DIRECTED Care 01/10/21 23:37 Active Oxygen Therapy [RC] PRN Care 01/10/21 23:37 Active Peripheral IV Care [RC] . DIRECTED Care 01/10/21 23:37 Active Vital Signs [RC] Q15M Care 01/11/21 06:43 Active Chest 1V Frontal [CR] Stat Exams 01/10/21 23:38 Taken Bamlanivimab 700 mg Med 01/11/21 06:43 Active Etesevimab [Etesevimab (EUA)] 1,400 mg Sodium Chloride 0.9% [Normal Saline] 250 ml IV ONETIME EPINEPHrine [Adrenalin] Med 01/11/21 06:43 Active 0.3 mg IM ONETIME PRN Famotidine [Pepcid] Med 01/11/21 06:43 Active 20 mg IVPUSH ONETIME PRN Sodium Chloride 0.9% [Normal Saline] 1,000 ml Med 01/10/21 23:45 Active IV .BOLUS Sodium Chloride 0.9% [Saline Flush] Med 01/10/21 23:37 Active 10 ml FLUSH ASDIRECTED PRN Sodium Chloride 0.9% [Saline Flush] Med 01/11/21 06:45 Active 30 ml FLUSH ASDIRECTED diphenhydrAMINE [Benadryl] Med 01/11/21 06:43 Active 50 mg IVPUSH ONETIME PRN methylPREDNISolone Sod Succ [Solu-MEDROL] Med 01/11/21 06:43 Active 125 mg IVPUSH ONETIME PRN Peripheral IV Insertion Adult [OM.PC] Stat Ot 01/10/21 23:37 Ordered Medication Orders Diphenhydramine HCl (Diphenhydramine 50 Mg/Ml Sdv) 50 mg IVPUSH ONETIME PRN PRN Reason: hypersensitivity reaction Epinephrine HCl (Epinephrine 1 Mg/Ml Sdv) 0.3 mg IM ONETIME PRN PRN Reason: hypersensitivity reaction Famotidine (Famotidine 20 Mg/2 Ml Sdv) 20 mg IVPUSH ONETIME PRN PRN Reason: hypersensitivity reaction Sodium Chloride (Normal Saline) 1,000 mls @ 1,000 mls/hr IV [facility] Last Admin: 01/11/21 00:00 Dose: 1,000 mls/hr Documented by: GRACE Bamlanivimab 700 mg/Etesevimab 1,400 mg/ Sodium Chloride 310 mls @ 310 mls/hr IV ONETIME ONE Stop: 01/11/21 07:42 Methylprednisolone Sodium Succinate (Methylprednisolone Sodium Succinate 125 Mg/2 Ml Sdv) 125 mg IVPUSH ONETIME PRN PRN Reason: hypersensitivity reaction Sodium Chloride (Sodium Chloride 0.9% 10 Ml Syringe) 10 ml FLUSH ASDIRECTED PRN PRN Reason: Keep Vein Open Last Admin: 01/11/21 00:01 Dose: 10 ml Documented by: GRACE Sodium Chloride (Sodium Chloride 0.9% 10 Ml Syringe) 30 ml FLUSH ASDIRECTED [facility] Labs: Laboratory Tests 01/11/21 01/11/21 01/11/21 Range/Units 00:13 00:13 00:13 WBC 4.47 (3.98-10.04) K/mm3 RBC 5.33 H (3.98-5.22) M/mm3 Hgb 13.7 (11.2-15.7) gm/dl Hct 44.0 (34.1-44.9) % MCV 82.6 D (79.4-94.8) fl MCH 25.7 (25.6-32.2) pg MCHC 31.1 L (32.2-35.5) g/dl RDW Std Deviation 61.7 H (36.4-46.3) fL Plt Count 125 L D (182-369) K/mm3 MPV 10.1 (9.4-12.3) fl Neut % (Auto) 58.6 (34.0-71.1) % Lymph % (Auto) 32.7 (19.3-51.7) % [place] % (Auto) 8.3 (4.7-12.5) % Eos % (Auto) 0.2 L (0.7-5.8) Baso % (Auto) 0.2 (0.1-1.2) % Neut # (Auto) 2.62 (1.56-6.13) K/mm3 Lymph # (Auto) 1.46 (1.18-3.74) K/mm3 [place] # (Auto) 0.37 H (0.24-0.36) K/mm3 Eos # (Auto) 0.01 L (0.04-0.36) K/mm3 Baso # (Auto) 0.01 (0.01-0.08) K/mm3 D-Dimer, Quantitative 1.22 H (0.19-0.50) mg/L Sodium 135 L (136-145) mEq/L Potassium 3.5 (3.5-5.1) mEq/L Chloride 102 (98-107) mEq/L Carbon Dioxide 24 (21-32) mEq/L Anion Gap 12.5 (5-15) BUN 7 (7-18) mg/dL Creatinine 0.8 (0.55-1.02) mg/dL Est Cr Clr Drug Dosing 81.59 mL/min Estimated GFR (MDRD) > 60 (>60) mL/min BUN/Creatinine Ratio 8.8 L (14-18) Glucose 101 H (70-99) mg/dL Lactic Acid (0.4-2.0) mmol/L Calcium 7.9 L (8.5-10.1) mg/dL Total Bilirubin 0.5 (0.2-1.0) mg/dL AST 116 H (15-37) U/L ALT 69 H (14-59) U/L Alkaline Phosphatase 251 H (46-116) U/L C-Reactive Protein 1.5 H* (<1.0) mg/dL Total Protein 8.0 (6.4-8.2) g/dl Albumin 2.8 L (3.4-5.0) g/dl Globulin 5.2 gm/dL Albumin/Globulin Ratio 0.5 L (1-2) 01/11/21 Range/Units 00:13 WBC (3.98-10.04) K/mm3 RBC (3.98-5.22) M/mm3 Hgb (11.2-15.7) gm/dl Hct (34.1-44.9) % MCV (79.4-94.8) fl MCH (25.6-32.2) pg MCHC (32.2-35.5) g/dl RDW Std Deviation (36.4-46.3) fL Plt Count (182-369) K/mm3 MPV (9.4-12.3) fl Neut % (Auto) (34.0-71.1) % Lymph % (Auto) (19.3-51.7) % [place] % (Auto) (4.7-12.5) % Eos % (Auto) (0.7-5.8) Baso % (Auto) (0.1-1.2) % Neut # (Auto) (1.56-6.13) K/mm3 Lymph # (Auto) (1.18-3.74) K/mm3 [place] # (Auto) (0.24-0.36) K/mm3 Eos # (Auto) (0.04-0.36) K/mm3 Baso # (Auto) (0.01-0.08) K/mm3 D-Dimer, Quantitative (0.19-0.50) mg/L Sodium (136-145) mEq/L Potassium (3.5-5.1) mEq/L Chloride (98-107) mEq/L Carbon Dioxide (21-32) mEq/L Anion Gap (5-15) BUN (7-18) mg/dL Creatinine (0.55-1.02) mg/dL Est Cr Clr Drug Dosing mL/min Estimated GFR (MDRD) (>60) mL/min BUN/Creatinine Ratio (14-18) Glucose (70-99) mg/dL Lactic Acid 1.0 (0.4-2.0) mmol/L Calcium (8.5-10.1) mg/dL Total Bilirubin (0.2-1.0) mg/dL AST (15-37) U/L ALT (14-59) U/L Alkaline Phosphatase (46-116) U/L C-Reactive Protein (<1.0) mg/dL Total Protein (6.4-8.2) g/dl Albumin (3.4-5.0) g/dl Globulin gm/dL Albumin/Globulin Ratio (1-2) Meds: Medications Generic Name Dose Route Start Last Admin Trade Name Freq PRN Reason Stop Dose Admin Diphenhydramine HCl 50 mg 01/11/21 06:43 Diphenhydramine 50 Mg/Ml Sdv IVPUSH ONETIME PRN hypersensitivity reaction Epinephrine HCl 0.3 mg 01/11/21 06:43 Epinephrine 1 Mg/Ml Sdv IM ONETIME PRN hypersensitivity reaction Famotidine 20 mg 01/11/21 06:43 Famotidine 20 Mg/2 Ml Sdv IVPUSH ONETIME PRN hypersensitivity reaction Sodium Chloride 1,000 mls @ 1,000 mls/hr 01/10/21 23:45 01/11/21 00:00 Normal Saline IV 1,000 mls/hr .BOLUS [facility] Administration Bamlanivimab 700 mg/ 310 mls @ 310 mls/hr 01/11/21 06:43 Etesevimab 1,400 mg/ Sodium IV 01/11/21 07:42 Chloride ONETIME ONE Methylprednisolone Sodium Succinate 125 mg 01/11/21 06:43 Methylprednisolone Sodium Succinate 125 Mg/2 Ml Sdv IVPUSH ONETIME PRN hypersensitivity reaction Sodium Chloride 10 ml 01/10/21 23:37 01/11/21 00:01 Sodium Chloride 0.9% 10 Ml Syringe FLUSH 10 ml ASDIRECTED PRN Administration Keep Vein Open Sodium Chloride 30 ml 01/11/21 06:45 Sodium Chloride 0.9% 10 Ml Syringe FLUSH ASDIRECTED [facility] Discontinued Medications Generic Name Dose Route Start Last Admin Trade Name Joie PRN Reason Stop Dose Admin Dexamethasone 4 mg 01/10/21 23:38 01/11/21 00:00 Dexamethasone 4 Mg/Ml Sdv IVPUSH 01/10/21 23:39 4 mg ONETIME ONE Administration - Re-Assessments/Exams Free Text/Narrative Re-Assessment/Exam: 01/11/21 02:23 I ordered an IV NS 1L bolus, dexamethasone 6mg IV, labs and a CXR. Her CXR shows an infiltrate in her left lower lung. Her CBC looks good. Her D-dimer was elevated at 1.2. Her lactic acid was normal. Her AST was elevated at 116. Her ALT was elevated at 69. Her Alk phos was elevated at 251. Her CRP was slightly elevated at 1.5. 01/11/21 02:26 She meets criteria for the bamlanivimab and etesevimab. We have no one to mix it until morning. I will keep her here until morning. I spoke with the patient to provide information about bamlanivimab/etesevimab treatment. I offered them the Patient and Caregiver EUA Bamlanivimab Fact Sheet to read and review. I stated the drug has been approved by an emergency use authorization (EUA} process and has not fully been FDA reviewed or approved. The patient meets the EUA requirements. I discussed there are other potential treatment options that are currently not FDA approved to treat COVID 19. Offered opportunity to ask questions and all questions were answered. The patient voiced understanding and agreed to proceed with treatment. 01/11/21 06:54 The patient has been here through the night and did good. I have ordered the monoclonal antibodies. Departure - Departure Time of Disposition: 10:00 Disposition: Home, Self-Care 01 Condition: Good Clinical Impression: COVID-19, Pneumonia due to COVID-19 virus - Discharge Information *PRESCRIPTION DRUG MONITORING PROGRAM REVIEWED*: Not Applicable *COPY OF PRESCRIPTION DRUG MONITORING REPORT IN PATIENT DELISA: Not Applicable Prescriptions: dexAMETHasone [Dexamethasone] 6 mg PO DAILY #9 tab Referrals: PCP,None [Primary Care Provider] - Forms: ED Department Discharge Additional Instructions: Drink plenty of fluids. Take the dexamethasone 6mg or 1.5pills daily for 9 days. Follow up with your doctor. Please return if you are worse. Sepsis Event Note (ED) - Evaluation Sepsis Screening Result: Possible Sepsis Risk - Focused Exam Vital Signs: Vital Signs Temp Pulse Resp BP Pulse Ox 01/10/21 23:17 100.9 F H 93 20 119/74 96 - My Orders Last 24 Hours: My Active Orders 01/10/21 23:37 Cardiac Monitoring [RC] . DIRECTED Oxygen Therapy [RC] PRN Peripheral IV Care [RC] . DIRECTED Sodium Chloride 0.9% [Saline Flush] 10 ml FLUSH ASDIRECTED PRN Peripheral IV Insertion Adult [OM.PC] Stat 01/10/21 23:38 Chest 1V Frontal [CR] Stat 01/10/21 23:45 Sodium Chloride 0.9% [Normal Saline] 1,000 ml IV .BOLUS 01/11/21 06:43 Vital Signs [RC] Q15M Bamlanivimab 700 mg Etesevimab [Etesevimab (EUA)] 1,400 mg Sodium Chloride 0.9% [Normal Saline] 250 ml IV ONETIME EPINEPHrine [Adrenalin] 0.3 mg IM ONETIME PRN Famotidine [Pepcid] 20 mg IVPUSH ONETIME PRN diphenhydrAMINE [Benadryl] 50 mg IVPUSH ONETIME PRN methylPREDNISolone Sod Succ [Solu-MEDROL] 125 mg IVPUSH ONETIME PRN 01/11/21 06:45 Sodium Chloride 0.9% [Saline Flush] 30 ml FLUSH ASDIRECTED - Assessment/Plan Last 24 Hours: My Active Orders 01/10/21 23:37 Cardiac Monitoring [RC] . DIRECTED Oxygen Therapy [RC] PRN Peripheral IV Care [RC] . DIRECTED Sodium Chloride 0.9% [Saline Flush] 10 ml FLUSH ASDIRECTED PRN Peripheral IV Insertion Adult [OM.PC] Stat 01/10/21 23:38 Chest 1V Frontal [CR] Stat 01/10/21 23:45 Sodium Chloride 0.9% [Normal Saline] 1,000 ml IV .BOLUS 01/11/21 06:43 Vital Signs [RC] Q15M Bamlanivimab 700 mg Etesevimab [Etesevimab (EUA)] 1,400 mg Sodium Chloride 0.9% [Normal Saline] 250 ml IV ONETIME EPINEPHrine [Adrenalin] 0.3 mg IM ONETIME PRN Famotidine [Pepcid] 20 mg IVPUSH ONETIME PRN diphenhydrAMINE [Benadryl] 50 mg IVPUSH ONETIME PRN methylPREDNISolone Sod Succ [Solu-MEDROL] 125 mg IVPUSH ONETIME PRN 01/11/21 06:45 Sodium Chloride 0.9% [Saline Flush] 30 ml FLUSH ASDIRECTED
[2021-01-11] MEDS ORDERED: diphenhydrAMINE 50 MG/ML SDV IVPUSH PRN (06:43)
[2021-01-11] MEDS ORDERED: EPINEPHrine 1 MG/ML SDV IM PRN (06:43)
[2021-01-11] MEDS ORDERED: Famotidine 20 MG/2 ML SDV IVPUSH PRN (06:43)
[2021-01-11] MEDS ORDERED: methylPREDNISolone Sodium Succinate 125 MG/2 ML SDV IVPUSH PRN (06:43)
[2021-01-11] MEDS ORDERED: Sodium Chloride 0.9% 10 ML Syringe FLUSH SCH (06:45)
--- NOTE | 2021-01-11 08:33 | CR ---
Chest: AP frontal view of the chest was obtained. Comparison: Prior chest x-ray 08/11/[address] chest study of 08/11/18. Increased density is seen within the left lung base which is an interval change from prior chest x-rays. Minimal increased density within the right lung base is also noted. Upper lungs are clear. Heart size and mediastinum are within normal limits for technique. No acute osseous abnormality is appreciated. Impression: 1. Increased density within both lung bases, worse on the left side. Findings most likely represent areas of pneumonia. Please correlate with the patient's symptoms. Diagnostic code #3
[2021-01-11 09:45] VITALS: BP 92/49; PULSE 79
== END 2021-01-11 09:50 | disposition home or self-care (01) ==
LOC: JD.ED 22:51
DX: U07.1 COVID-19 (principal); J12.82 Pneumonia due to coronavirus disease 2019; K21.9 Gastro-esophageal reflux disease without esophagitis; E11.9 Type 2 diabetes mellitus without complications; Z88.0 Allergy status to penicillin; Z79.4 Long term (current) use of insulin
CPT/HCPCS: 36415; 71045; 80053; 83605; 85025; 85379; 86140; 96374; 99285; J1100; J7030; J7050; M0245; Q0245; 99284

== ENCOUNTER 2025-07-08 12:50 | Emergency (ER) | payer MEDICAID ==
[2025-07-08] MEDS ORDERED: Sodium Chloride 0.9% 10 ML Syringe FLUSH PRN (13:32)
[2025-07-08 14:07] LABS: MEAN PLATELET VOLUME 11.0 fl (9.4-12.3); NRBC ABSOLUTE 0.00 (0.00-0.02); NRBC PERCENT 0.0 % (0.0-0.2); PLATELET COUNT,PLT 162 K/mm3 (150-400); RED BLOOD CELL COUNT 5.48 M/mm3 (4.10-5.30); WHITE BLOOD CELL COUNT,WBC 11.13 K/mm3 (3.9-11.3)
[2025-07-08 14:26] LABS: A/G RATIO 0.6 (1-2); ALANINE AMINOTRANSFERASE,ALT 22.0 U/L (14-59); ASPARTATE AMNIOTRANSFERASE,AST 20.0 U/L (15-37); BILIRUBIN TOTAL 1.4 mg/dL (0.2-1.0); BLOOD UREA NITROGEN,BUN 7.0 mg/dL (7-18); CARBON DIOXIDE,CO2 24.0 mEq/L (21-32); CHLORIDE,CL 100.0 mEq/L (98-107); CREATININE 1.0 mg/dL (0.55-1.02); EST CRCL DRUG DOSING (CG) 62.58 mL/min; ESTIMATED GFR 70.0 mL/min (>60); GLUCOSE RANDOM 186.0 mg/dL (70-99); POTASSIUM,K 4.1 mEq/L (3.5-5.1); PROTEIN TOTAL,TP 8.5 g/dl (6.4-8.2); SODIUM,NA 133.0 mEq/L (136-145)
[2025-07-08 14:29] LABS: LACTIC ACID 1.7 mmol/L (0.4-2.0)
[2025-07-08 14:32] LABS: INR 1.06
[2025-07-08 14:34] LABS: APPEARANCE,URINE TURBID (Clear); GLUCOSE,URINE NEGATIVE (Negative); OCCULT BLOOD,URINE TRACE-INTACT (Negative)
[2025-07-08 15:05] LABS: SQUAMOUS EPITHELIAL CELLS,UR 0-5 /hpf (0-5); WBC CLUMPS,URINE FEW /hpf (NOT SEEN)
[2025-07-08 15:21] LABS: BAND PERCENT MAN 0 % (0-10); BASOPHILS PERCENT MAN 0 (0.1-1.2); EOSINOPHILS PERCENT MAN 0 % (0.7-5.8); LYMPHOCYTES % ATYPICAL MANUAL 1 %; LYMPHOCYTES PERCENT MAN 5 % (20-40); MONOCYTES PERCENT MAN 2 % (2-10)
[2025-07-08 15:23] LABS: PLATELET COUNT ESTIMATE ADEQUATE
[2025-07-08] MEDS: Phenazopyridine 95 MG Tab PO STA (15:35)
[2025-07-08] MEDS: Nitrofurantoin Monohydrate/Macrocrystalline 100 MG Cap PO ONE (15:35)
[2025-07-08 16:52] VITALS: BP 109/81; PULSE 101
== END 2025-07-08 15:40 | disposition home or self-care (01) ==
LOC: JD.ED 12:50
DX: N39.0 Urinary tract infection, site not specified (principal); I10 Essential (primary) hypertension; E11.9 Type 2 diabetes mellitus without complications; F17.200 Nicotine dependence, unspecified, uncomplicated; Z86.16 Personal history of COVID-19; Z90.49 Acquired absence of other specified parts of digestive tract; Z88.0 Allergy status to penicillin; Z79.4 Long term (current) use of insulin; Z79.899 Other long term (current) drug therapy
CPT/HCPCS: 36415; 71045; 80053; 81001; 83605; 85007; 85027; 85610; 86140; 87040; 87086; 87428; 99283; A9270; 87088; 87186; 99284